=== PATIENT | female | born 1960 | race Caucasian/White ===

== ENCOUNTER → 2018-05-29 | Outpatient (CLI) | payer OTHER ==
[~2018-05-29] MED LIST: ASCO-191 PO; CA C1TAB10 PO; CALC-852 PO; ESTR42.59 VG; FLUO-201 PO; FLUO-202 PO; GLUC-180 PO; MAGN100T2 PO; OMEG-11 PO; OXYGENHOME INH; TURM500C7 PO
--- NOTE | 2018-05-29 10:06 | RADIOLOGY IMAGING REPORT ---
FACILITY: [facility] PATIENT NAME: Laura Terry : 1960 MR: [id number] V: [id number] EXAM DATE: ORDERING PHYSICIAN: BINH BOYER TECHNOLOGIST: Location: [facility] - [place] Patient: Laura Terry : 1960 Visit/Account:[id number] Date of Sevice: 05/29/2018 DEXA Scan Clinical history: Osteopenia. Comparison: None available. LUMBAR SPINE: The bone mineral density (BMD) measured from L1-L4 correlates with a Z-score 4.5 and a T-score of 3.1 which is Normal as defined by the World Health Organization. The corresponding risk of fracture in the lumbar spine is Not increased compared with a young adult reference population. HIP: Bone mineral density (BMD) measured in the Left total hip region correlates with a Z-score 1.2 and a T-score of 0.1 which is Normal as defined by the World Health Organization. The corresponding risk o f fracture in the hip is Not increased compared with a young adult reference population. Bone mineral density (BMD) measured in the Femoral Neck region measures 0.924 g/cm2. T score is -0.8 , normal Impression: 1. Lumbar spine: Normal. 2. Left Hip: Normal. 3. Femoral Neck: Bone Mineral Density is 0.924 g/cm2 normal The next DEXA scan of this patient should include the following sites: L1-L4 and the left hip. FRAX? WHO Fracture Risk Assessment Tool link: <http://www.shef.ac.uk/FRAX/tool.jsp?locationValue=9> PLEASE NOTE: 1) The World Health Organization defines low BMD as follows: T-score Normal > -1 Osteopenia < -1 and > -2.5 Osteoporosis < -2.5 without fractures Established osteoporosis < -2.5 with fractures 2) In general, you may wish to consider: Diagnosis Treatment Follow-up DEXA Normal BMD Prevention 2-3 years Osteopenia Prevention/therapy 1-2 years Osteoporosis Therapy Yearly 3) Fracture risk estimated from the T-score is more accurate for vertebral fractures (often spontane ous) than for hip fractures. Hip without Report Dictated By: Laurent Hall MD at 05/29/2018 9:58 AM Report E-Signed By: Laurent Hall MD at 05/29/2018 10:02 AM WSN:LORE
--- NOTE | 2018-05-30 16:06 | RADIOLOGY IMAGING REPORT ---
FACILITY: [facility] PATIENT NAME: LORENE DORAN : [id number] MR: [id number] V: [id number] EXAM DATE: ORDERING PHYSICIAN: BINH BOYER TECHNOLOGIST: Martha Shields PROCEDURE:BILATERAL DIGITAL SCREENING MAMMOGRAM WITH CAD ASSISTED INTERPRETATION & 3D TOMOSYNTHESIS COMPARISON:Prior mammograms INDICATIONS:SCREENING FINDINGS: The breasts are heterogeneously dense. Several benign appearing calcifications are scattered bilaterally. DIAGNOSTIC CATEGORY 1--NEGATIVE. RECOMMENDATIONS: ROUTINE MAMMOGRAM AND CLINICAL EVALUATION IN 1 YR. IMPRESSION: BIRADS 1: Negative. Dictated by: Darrell Cortes M.D. on 05/30/2018 at 12:20 Transcribed by: ADRIEN on 05/30/2018 at 13:12 Approved by: Darrell Cortes M.D. on 05/30/2018 at 16:05 [facility]
== END ==
LOC: MAMO 00:22
PROVIDERS: ATTEND Family Medicine
DX: Z13.820 Encounter for screening for osteoporosis (principal); Z12.31 Encounter for screening mammogram for malignant neoplasm of breast; Z80.3 Family history of malignant neoplasm of breast
CPT/HCPCS: 77063; 77067; 77080

== ENCOUNTER 2018-10-22 22:28 | Emergency (ER) | payer OTHER ==
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
[2018-10-23] VITALS: BP 128/78
== END 2018-10-23 00:13 | disposition home or self-care (01) ==
LOC: ER 22:52
DX: S01.01XA Laceration without foreign body of scalp, initial encounter (principal); V44.5XXA Car driver injured in collision with heavy transport vehicle or bus in traffic accident, initial encounter
CPT/HCPCS: 99282

== ENCOUNTER → 2018-11-06 | Outpatient (CLI) | payer OTHER ==
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
== END ==
LOC: RAD 15:34
PROVIDERS: ATTEND Family Medicine
DX: M47.812 Spondylosis without myelopathy or radiculopathy, cervical region (principal); M43.12 Spondylolisthesis, cervical region
CPT/HCPCS: 72040